=== PATIENT | female | born 1995 | race Caucasian/White ===

== ENCOUNTER 2019-08-19 09:22 | Observation (INO) | payer BC, MEDICAID ==
[~2019-08-19] VITALS: Ht 152.4 cm; Wt 78.1 kg
[2019-08-19 09:44] VITALS: BP 123/78
[2019-08-19 10:37] LABS: MICROSCOPIC NOT IND
== END 2019-08-19 19:29 | disposition home or self-care (01) ==
LOC: LDOP 09:22 → LDIP 15:06
PROVIDERS: ADMIT Obstetrics & Gynecology; ATTEND Obstetrics & Gynecology
DX: O35.8XX0 Maternal care for other (suspected) fetal abnormality and damage, not applicable or unspecified (principal); O99.343 Other mental disorders complicating pregnancy, third trimester; O26.853 Spotting complicating pregnancy, third trimester; F32.9 Major depressive disorder, single episode, unspecified; Z3A.30 30 weeks gestation of pregnancy
CPT/HCPCS: 59025; 76815; 81003; 87491; 87591; 99201; G0378; G0463

== ENCOUNTER 2019-10-12 10:08 | Inpatient (IN) | payer BC, MEDICAID ==
[~2019-10-12] VITALS: Ht 154.9 cm; Wt 82.7 kg
[2019-10-12] MEDS ORDERED: PREN-3 PO (10:21)
[2019-10-12 10:23] VITALS: BP 139/98
[2019-10-12] MEDS ORDERED: BUPR150T73 PO (10:23)
[2019-10-12] MEDS ORDERED: FLUO20CA19 PO (10:23)
[2019-10-12 10:29] LABS: BASOPHILS % (AUTO) 0 % (0-1); EOSINOPHILS # (AUTO) 0.15 x10^3/uL (0-0.4); EOSINOPHILS % (AUTO) 1 % (1-7); LYMPHOCYTES # (AUTO) 2.18 x10^3/uL (1-3.4); LYMPHOCYTES % (AUTO) 20 % (22-44); MD NO; MEAN CORPUSCULAR HGB CONC 33.4 g/dL (32.4-35.8); MEAN PLATELET VOLUME 7.7 fL (7.4-10.4); MONOCYTES # (AUTO) 0.88 x10^3/uL (0.2-0.8); MONOCYTES % (AUTO) 8 % (2-9); NEUTROPHILS # (AUTO) 7.53 x10^3/uL (1.8-6.8); NEUTROPHILS % (AUTO) 70 % (42-75); PLATELET COUNT 206 x10^3/uL (130-400); RED BLOOD COUNT 4.61 x10^6/uL (3.82-5.3); RED CELL DISTRIBUTION WIDTH 13.8 % (9.6-15.2)
[2019-10-12 10:36] LABS: MICROSCOPIC AUTO
[2019-10-12 10:42] LABS: ALBUMIN 2.8 g/dL (3.4-5.0); ANION GAP 5 mmol/L (5-15); CALCIUM 8.9 mg/dL (8.5-10.1); CHLORIDE 112 mmol/L (98-107); CREATININE 0.56 mg/dL (0.55-1.02)
[2019-10-12 10:47] LABS: ALANINE AMINOTRANSFERASE 17 U/L (12-78); ALKALINE PHOSPHATASE 185 U/L (45-117); BILIRUBIN,TOTAL 0.3 mg/dL (0.2-1.0); TOTAL PROTEIN 6.3 g/dL (6.4-8.2)
[2019-10-12 10:49] LABS: BILIRUBIN, DIRECT < 0.1 mg/dL (0.1-0.2)
[2019-10-12] MEDS: LACTATED RINGERS 1,000 ML IV SCH (11:30)
[2019-10-12] MEDS ORDERED: OXYTOCIN 30U/ 0.9% NaCL 500ML 500 ML IV ONE (11:33)
[2019-10-12] MEDS ORDERED: MISOPROSTOL 25 MCG TABLET ONE (11:54)
[2019-10-12] MEDS ORDERED: TERBUTALINE 1 MG/ML, 1ML SQ PRN (12:00)
[2019-10-12] MEDS ORDERED: FENTANYL PF 100 MCG/2ML IV PRN (12:00)
[2019-10-12] MEDS ORDERED: TERBUTALINE 1 MG/ML, 1ML IVPush PRN (12:00)
[2019-10-12] MEDS ORDERED: MISOPROSTOL 25 MCG TABLET VG PRN (12:00)
[2019-10-12] MEDS ORDERED: OXYTOCIN 30U/ 0.9% NaCL 500ML 500 ML ONE (12:03)
[2019-10-12] MEDS ORDERED: MISOPROSTOL 200 MCG TABLET ONE (12:03)
[2019-10-12] MEDS ORDERED: NEWBORN KIT ONE (12:03)
[2019-10-12] MEDS ORDERED: LIDOCAINE 1%, 20ML ONE (12:03)
[2019-10-12] MEDS ORDERED: LABETALOL 5MG/ML, 20ML ONE (12:09)
[2019-10-12] MEDS ORDERED: LABETALOL 5MG/ML, 20ML IVPush ONE (12:30)
[2019-10-12 15:08] LABS: AMPHETAMINE SCREEN, URINE Negative (Negative); BARBITURATE SCREEN, URINE Negative (Negative); BENZODIAZEPINE SCREEN, URINE Negative (Negative); CANNABINOID SCREEN, URINE Positive (Negative); COCAINE SCREEN, URINE Negative (Negative); METHADONE SCREEN, URINE Negative (Negative); OPIATE SCREEN, URINE Negative (Negative)
[2019-10-12] MEDS ORDERED: LABETALOL 5MG/ML, 20ML IVPush STA (15:27)
[2019-10-12] MEDS ORDERED: MAGNESIUM SULF. PMX 20GM/500ML 500 ML IV ONE (16:27)
[2019-10-12] MEDS ORDERED: MAGNESIUM SULFATE PMX 4GM/100M 100 ML IVPB ONE (16:30)
[2019-10-12] MEDS: MAGNESIUM SULF. PMX 20GM/500ML 500 ML IV SCH ×2 (16:54→17:22)
[2019-10-12] MEDS ORDERED: FENTANYL PF 100 MCG/2ML ONE ×3 (17:15→22:39)
[2019-10-12] MEDS: FENTANYL PF 100 MCG/2ML IVPush PRN ×3 (17:20→22:42)
[2019-10-12] MEDS ORDERED: ACETAMINOPHEN 325 MG TABLET ONE (19:01)
[2019-10-12] MEDS: ACETAMINOPHEN 325 MG TABLET PO PRN (19:07)
[2019-10-12] MEDS ORDERED: ONDANSETRON 2MG/ML, 2ML ONE (19:44)
[2019-10-12] MEDS: ONDANSETRON 2MG/ML, 2ML IVPush PRN (19:50)
[2019-10-12] MEDS: D5%-LACTATED RINGERS 1,000 ML IV SCH (20:39)
[2019-10-12] MEDS: BUPROPION SR 150 MG TABLET PO SCH (20:49)
[2019-10-12] MEDS: FLUOXETINE HCL 20 MG CAPSULE PO SCH (20:49)
[2019-10-13] MEDS ORDERED: MAGNESIUM SULF. PMX 20GM/500ML 500 ML IV ONE ×3 (00:19→20:37)
[2019-10-13] MEDS: MAGNESIUM SULF. PMX 20GM/500ML 500 ML IV SCH ×3 (00:21→20:45)
[2019-10-13] MEDS ORDERED: ACETAMINOPHEN 325 MG TABLET ONE ×3 (00:49→15:13)
[2019-10-13] MEDS: ACETAMINOPHEN 325 MG TABLET PO PRN ×3 (00:50→15:16)
[2019-10-13] MEDS ORDERED: FENTANYL PF 100 MCG/2ML ONE (01:54)
[2019-10-13] MEDS: D5%-LACTATED RINGERS 1,000 ML IV SCH ×4 (04:39→20:39)
[2019-10-13] MEDS ORDERED: MISOPROSTOL 25 MCG TABLET ONE (05:25)
[2019-10-13] MEDS ORDERED: ONDANSETRON 2MG/ML, 2ML ONE (05:33)
[2019-10-13] MEDS: ONDANSETRON 2MG/ML, 2ML IVPush PRN (05:39)
[2019-10-13] MEDS ORDERED: OXYTOCIN 30U/ 0.9% NaCL 500ML 500 ML IV PRN (05:39)
[2019-10-13] MEDS ORDERED: FENTANYL/BUPIV./NS/PF 250 ML EPIDCONT ONE (09:25)
[2019-10-13] MEDS ORDERED: FENTANYL/BUPIV./NS/PF 250 ML EPIDCONT SCH (10:14)
[2019-10-13] MEDS ORDERED: LACTATED RINGERS 1,000 ML IV SCH (10:14)
[2019-10-13] MEDS ORDERED: LACTATED RINGERS 1,000 ML IVBOLUS PRN (10:30)
[2019-10-13] MEDS ORDERED: EPHEDRINE 50 MG/ML, 1ML IVPush PRN (10:30)
[2019-10-13] MEDS: LACTATED RINGERS 1,000 ML IV SCH ×4 (11:59→20:47)
[2019-10-13] MEDS ORDERED: BUPIVACAINE 0.25% ONE (18:14)
[2019-10-13] MEDS: BUPROPION SR 150 MG TABLET PO SCH (21:00)
[2019-10-13] MEDS: FLUOXETINE HCL 20 MG CAPSULE PO SCH (21:00)
[2019-10-13] MEDS ORDERED: OXYTOCIN 30U/ 0.9% NaCL 500ML 500 ML ONE ×2 (22:22→23:47)
[2019-10-13] MEDS ORDERED: DOCUSATE 100 MG CAPSULE PO PRN (22:30)
[2019-10-13] MEDS ORDERED: OXYcodone/APAP 5/325MG TABLET PO PRN ×2 (22:30)
[2019-10-13] MEDS ORDERED: CARBOPROST TROMETHAMINE 250 MCG/ML, 1ML IM PRN (22:30)
[2019-10-13] MEDS ORDERED: SIMETHICONE 80 MG CHEW TAB PO PRN (22:30)
[2019-10-13] MEDS ORDERED: MISOPROSTOL 200 MCG TABLET PR PRN (22:30)
[2019-10-13] MEDS ORDERED: ONDANSETRON 2MG/ML, 2ML IV PRN (22:30)
[2019-10-13] MEDS ORDERED: IBUPROFEN 800 MG TABLET PO PRN (22:30)
[2019-10-13] MEDS: OXYTOCIN 30U/ 0.9% NaCL 500ML 500 ML IV SCH ×2 (22:58→23:56)
[2019-10-14 01:26] VITALS: BP 161/76
[2019-10-14] MEDS ORDERED: LABETALOL 5MG/ML, 20ML ONE (02:26)
[2019-10-14] MEDS ORDERED: LABETALOL 5MG/ML, 20ML IVPush PRN ×3 (02:30)
[2019-10-14] MEDS ORDERED: hydrALAzine 20 MG/ML, 1ML IVPush ONE (02:30)
[2019-10-14] MEDS: D5%-LACTATED RINGERS 1,000 ML IV SCH ×3 (04:39→18:58)
[2019-10-14 04:55] VITALS: BP 130/84
[2019-10-14 05:30] LABS: MEAN CORPUSCULAR HEMOGLOBIN 31.1 pg (27.0-34.8); MEAN CORPUSCULAR HGB CONC 33.8 g/dL (32.4-35.8); MEAN CORPUSCULAR VOLUME 92.2 fL (80-100); MEAN PLATELET VOLUME 8.1 fL (7.4-10.4); PLATELET COUNT 171 x10^3/uL (130-400); RED BLOOD COUNT 4.15 x10^6/uL (3.82-5.3); RED CELL DISTRIBUTION WIDTH 14.3 % (9.6-15.2)
[2019-10-14] MEDS: LACTATED RINGERS 1,000 ML IV SCH ×3 (05:37→18:58)
[2019-10-14 06:09] LABS: BASOPHILS % (AUTO) 0 % (0-1); EOSINOPHILS % (AUTO) 0 % (1-7); LYMPHOCYTES # (AUTO) 1.67 x10^3/uL (1-3.4); LYMPHOCYTES % (AUTO) 8 % (22-44); MD SCAN; MONOCYTES # (AUTO) 0.99 x10^3/uL (0.2-0.8); MONOCYTES % (AUTO) 5 % (2-9); NEUTROPHILS % (AUTO) 87 % (42-75)
[2019-10-14] MEDS ORDERED: MAGNESIUM SULF. PMX 20GM/500ML 500 ML IV ONE (07:29)
[2019-10-14] MEDS: MAGNESIUM SULF. PMX 20GM/500ML 500 ML IV SCH (07:33)
[2019-10-14] MEDS: FLUOXETINE HCL 20 MG CAPSULE PO SCH (07:34)
[2019-10-14] MEDS: BUPROPION SR 150 MG TABLET PO SCH (07:34)
[2019-10-14] MEDS ORDERED: PRENATAL VIT/IRON/FA 1 EACH TABLET ONE (07:36)
[2019-10-14] MEDS: PRENATAL VIT/IRON/FA 1 EACH TABLET PO SCH (07:36)
[2019-10-14] MEDS ORDERED: ACETAMINOPHEN 325 MG TABLET ONE (11:55)
[2019-10-14] MEDS: ACETAMINOPHEN 325 MG TABLET PO PRN (11:57)
[2019-10-14] MEDS: OXYTOCIN 30U/ 0.9% NaCL 500ML 500 ML IV SCH (18:19)
[2019-10-14 20:38] VITALS: BP 148/91
[2019-10-15] VITALS (9 sets, daily range): BP systolic 125–158; BP diastolic 83–99
[2019-10-15] MEDS: OXYTOCIN 30U/ 0.9% NaCL 500ML 500 ML IV SCH ×2 (04:19→14:19)
[2019-10-15] MEDS: MAGNESIUM SULF. PMX 20GM/500ML 500 ML IV SCH ×2 (04:21→14:21)
[2019-10-15] MEDS: D5%-LACTATED RINGERS 1,000 ML IV SCH ×2 (04:22→12:39)
[2019-10-15] MEDS: LACTATED RINGERS 1,000 ML IV SCH ×2 (04:22→12:39)
[2019-10-15] MEDS: PRENATAL VIT/IRON/FA 1 EACH TABLET PO SCH (08:36)
[2019-10-15] MEDS: BUPROPION SR 150 MG TABLET PO SCH (08:36)
[2019-10-15] MEDS: FLUOXETINE HCL 20 MG CAPSULE PO SCH (08:37)
[2019-10-15] MEDS ORDERED: LABETALOL 100 MG TABLET ONE (12:34)
[2019-10-15] MEDS: LABETALOL 100 MG TABLET PO SCH ×2 (12:37→18:07)
== END 2019-10-15 22:06 | disposition home or self-care (01) | DRG 806 ==
LOC: LDOP 10:08 → LDIP 11:20 → 2NE 10-14 00:30 → 2NW 10-14 18:18
PROVIDERS: ADMIT Obstetrics & Gynecology; ATTEND Obstetrics & Gynecology
PROC: 10E0XZZ Delivery of Products of Conception, External Approach (ICD-10-PCS; principal; 2019-10-13)
PROC: 10907ZC Drainage of Amniotic Fluid, Therapeutic from Products of Conception, Via Natural or Artificial Opening (ICD-10-PCS; 2019-10-13)
PROC: 0U7C7ZZ Dilation of Cervix, Via Natural or Artificial Opening (ICD-10-PCS; 2019-10-13)
DX: O14.14 Severe pre-eclampsia complicating childbirth (principal); O99.354 Diseases of the nervous system complicating childbirth; Z37.0 Single live birth; G43.909 Migraine, unspecified, not intractable, without status migrainosus; F32.9 Major depressive disorder, single episode, unspecified; O69.81X0 Labor and delivery complicated by cord around neck, without compression, not applicable or unspecified; O71.89 Other specified obstetric trauma; O64.0XX0 Obstructed labor due to incomplete rotation of fetal head, not applicable or unspecified; O99.344 Other mental disorders complicating childbirth; Z14.1 Cystic fibrosis carrier; Z3A.38 38 weeks gestation of pregnancy; Z83.3 Family history of diabetes mellitus
CPT/HCPCS: 36415; J7121; 80053; 80307; 81001; 82248; 82570; 83735; 84156; 84550; 85025; 86592; 86850; 86900; 87635; G0378; J2405; J3010; J2590; J3475; J7120